=== PATIENT | female | born 1995 | race Caucasian/White ===

== ENCOUNTER 2017-02-20 22:33 | Emergency (ER) | payer MEDICAID ==
--- NOTE | 2017-02-20 23:59 | ED Physician Chart ---
ED Chief Complaint/HPI - Patient Information Date Seen:: 02/20/17 Time Seen:: 22:40 Chief Complaint:: Dog Bite History of Present Illness:: onset x one hour of left foot dog bite; no H/As, neck pain, C/P, SOB, Abd/flank/ pelvic pain, A/N/V/D/C, fever, chills, or urinary s/s; pt's last tetanus shot: > 5 years Allergies:: Allergies Allergy/AdvReac Type Severity Reaction Status Date / Time No Known Allergies Allergy Verified 02/20/17 22:58 Vitals:: Vital Signs - 8 hr 02/20/17 02/20/17 02/20/17 22:40 23:19 23:23 HR 90 84 84 RR 18 18 18 BP 124/74 118/72 118/74 O2 Sat % 95 98 98 Historian:: Patient, Family Member Review:: Nurse's Note Reviewed ED Review of Systems - Review of Systems General/Constitutional: No fever, No chills, No weight loss, No weakness, No diaphoresis, No edema, No loss of appetite Skin: No skin lesions, No rash, No bruising, Other (wound/dog bite) Head: No headache, No light-headedness Eyes: No loss of vision, No pain, No diplopia ENT: No earache, No nasal drainage, No sore throat, No tinnitus Neck: No neck pain, No swelling, No thyromegaly, No stiffness, No mass noted Cardio Vascular: No chest pain, No palpitations, No PND, No orthopnea, No edema Pulmonary: No SOB, No cough, No sputum, No wheezing GI: No nausea, No vomiting, No diarrhea, No pain, No melena, No hematochezia, No constipation, No hematemesis G/U: No dysuria, No frequency, No hematuria Musculoskeletal: No bone or joint pain, No back pain, No muscle pain Endocrine: No polyuria, No polydipsia Psychiatric: No prior psych history, No depression, No anxiety, No suicidal ideation Hematopoietic: No bruising, No lymphadenopathy Allergic/Immuno: No urticaria, No angioedema Neurological: No syncope, No focal symptoms, No weakness, No paresthesia, No headache, No seizure, No dizziness, No confusion, No vertigo ED Past Medical History - Past Medical History Obtainable: Yes Past Medical History: No significant medical hx Family History: HTN Social History: Non Smoker, No Alcohol, No Drug Use, Single, Lives With Parents Surgical History: None Psychiatricy History: None Medication: Reviewed Family Medical History - Family Member Mother History Unknown: Yes ED Physical Exam - Physical Examination General/Constitutional: Awake, Well-developed, well-nourished, Alert, No distress, GCS 15, Non-toxic appearing, Ambulatory Head: Atraumatic Eyes: Lids, conjuctiva normal, PERRL, EOMI Skin: Nl inspection, No rash, No skin lesions, No ecchymosis, Well hydrated, No lymphadenopathy Other Skin comments:: Left Foot: PW at plantar 4th MTP region; no FBs; Gait: WNL; no ligament instability; goog motor, tendon, and sensory functions; good NV functions ENMT: External ears, nose nl, Nasal exam nl, Lips, teeth, gums nl Neck: Nontender, Full ROM w/o pain, No JVD, No nuchal rigidity, No bruit, No mass, No stridor Respiratory: Nl effort/Exclusion, Clear to Auscultation, No Wheeze/Rhonchi/Rales Cardio Vascular: RRR, No murmur, gallop, rubs, NL S1 S2 GI: No tenderness/rebounding/guarding, No organomegaly, No hernia, Normal BS's, Nondistended, No mass/bruits, No McBurney tenderness : No CVA tenderness Extremities: No tenderness or effusion, Full ROM, normal strength in all extremities, No edema, Normal digits & nails Neuro/Psych: Alert/oriented, DTR's symmetric, Normal sensory exam, Normal motor strength, Judgement/insight normal, Mood normal, Normal gait, No focal deficits Misc: Normal back, No paraspinal tenderness ED Assessment Location:: Left Foot Laceration Type:: Other (Puncture Wound) Prep/Irrigation:: Thorough Cleansing and Irrigation with Betadine and Normal Saline; Neosporin Ointment and Dressings applied ED Septic Shock - . Is Septic Shock (SBP<90, OR Lactate>4 mmol\L) present?: No - <6hrs of presentation: Vital Signs: Vital Signs - 8 hr 02/20/17 02/20/17 02/20/17 22:40 23:19 23:23 HR 90 84 84 RR 18 18 18 BP 124/74 118/72 118/74 O2 Sat % 95 98 98 ED Reassessment (Disposition) - Reassessment Reassessment:: pt is asymptomatic upon discharge Reassessment Condition:: Improved - Diagnosis Diagnosis:: Dx: Dog Bite; Cellulitis; Dog Bite Wound; Puncture Wound; Left Foot Wound - Aftercare/Follow up Instructions Aftercare/Follow-Up Instructions:: Counseled pt regarding lab results/diagnosis & need follow up, Refer to Discharge Instructions, Counseled pt & family regarding lab results/diagnosis & need follow up Medication Prescribed:: Rx: Keflex 500mg po qid x 10 days; Neosporin Ointment bid and dressing x 14 days ; Keep Wound clean and dry - Patient Disposition Discharge/Transfer:: Home Condition at Disposition:: Stable, Improved (RTER prn if existing s/s reoccur and/or get worse and/or any other new s/s occur; ACIs given for all above Dx; Refer to Vascular Surgeon/Orthopedist MELLISSA; F/U with PMD in one day or prn; RTER prn if concerned) ED Discharge Plan - Patient Disposition Instructions: Animal Bite, [id number]-Ktaq, Cellulitis Additional Instructions: Follow up with primary care physician. Keep wound clean and dry. Return to ED if symptoms worsen. Take medications as prescribed.
== END 2017-02-20 23:43 | disposition home or self-care (01) ==
LOC: ER 22:33
DX: S91.352A Open bite, left foot, initial encounter (principal); L03.116 Cellulitis of left lower limb; W54.0XXA Bitten by dog, initial encounter; Y93.89 Activity, other specified; Y92.89 Other specified places as the place of occurrence of the external cause; Y99.8 Other external cause status
CPT/HCPCS: 99284; 96372; 90715; J0696; X7704; Z7502; Z7610